=== PATIENT | male | born 1995 | race Caucasian/White ===

== ENCOUNTER 2022-02-14 22:04 | Emergency (ER) | payer BC ==
[~2022-02-14] VITALS: Ht 175.3 cm; Wt 83.9 kg
[~2022-02-14 22:04] MED LIST: ALBU90OI6 INH; DIPH50 PO; IBUP600 PO; ONDA8 PO
[2022-02-15] MEDS ORDERED: Permethrin60 GM TOP (00:12)
== END 2022-02-15 00:22 | disposition home or self-care (01) ==
LOC: ER 22:04
DX: T14.8XXA Other injury of unspecified body region, initial encounter (principal); J45.909 Unspecified asthma, uncomplicated; F17.200 Nicotine dependence, unspecified, uncomplicated; W57.XXXA Bitten or stung by nonvenomous insect and other nonvenomous arthropods, initial encounter
CPT/HCPCS: 99282